=== PATIENT | female | born 1985 | race Caucasian/White ===

== ENCOUNTER 2016-10-01 22:24 | Emergency (ER) | payer OTHER ==
[2016-10-01 22:30] VITALS: BP 111/75; PULSE 94; RESP 18; TEMP 98.9
--- NOTE | 2016-10-01 23:44 | ED ---
URI HPI - General Chief Complaint: Upper Respiratory Infection Stated Complaint: Diff breathing Time Seen by Provider: 10/01/16 23:14 Source: patient, RN notes reviewed Mode of arrival: ambulatory Limitations: no limitations - History of Present Illness Initial Comments: Patient is a 31-year-old female presents to the emergency room for evaluation of general malaise. Patient states that starting yesterday she began having all over body aches, headache, congestion, sore throat, cough. Patient states she is coughing so much she feels short of breath. Patient denies chest pain. Patient states and taking vitamin C. Patient denies taking any other medications for her symptoms. Patient denies receiving her influenza vaccine this year. Patient denies any nausea or vomiting, patient denies abdominal pain. Patient denies diarrhea. Patient states she's been having low-grade fever over the past day. Patient denies being on any medications. Patient denies any significant past medical history. Patient does admit that she smokes a half pack of cigarettes per day. - Related Data Home Medications Medication Instructions Recorded Confirmed #79/Iron Asp Gly/FA#1 1 each PO DAILY 10/01/16 10/01/16 [Prenate Elite Tablet] Previous Rx's Medication Instructions Recorded guaiFENesin [Mucinex] 1,200 mg PO BID PRN #12 tab.er.12h 10/02/16 Allergies Allergy/AdvReac Type Severity Reaction Status Date / Time No Known Allergies Allergy Verified 10/01/16 22:29 Review of Systems ROS Statement: Those systems with pertinent positive or pertinent negative responses have been documented in the HPI. ROS Other: All systems not noted in ROS Statement are negative. Past Medical History Past Medical History: No Reported History History of Any Multi-Drug Resistant Organisms: None Reported Past Surgical History: Hernia Repair Past Psychological History: No Psychological Hx Reported Smoking Status: Current every day smoker Past Alcohol Use History: None Reported Past Drug Use History: None Reported General Exam - General Exam Comments Initial Comments: Sitting in exam room, no acute distress. Limitations: no limitations General appearance: alert, in no apparent distress Head exam: Present: atraumatic, normocephalic, normal inspection Eye exam: Present: normal appearance ENT exam: Present: normal exam, normal oropharynx, mucous membranes moist, TM's normal bilaterally, normal external ear exam Neck exam: Present: normal inspection, full ROM Respiratory exam: Present: normal lung sounds bilaterally. Absent: respiratory distress Cardiovascular Exam: Present: regular rate, normal rhythm, normal heart sounds Extremities exam: Present: normal inspection Back exam: Present: normal inspection Neurological exam: Present: alert, oriented X3, CN II-XII intact, normal gait Psychiatric exam: Present: normal affect, normal mood Skin exam: Present: warm, dry, intact, normal color. Absent: rash Course Vital Signs 10/01/16 10/01/16 22:27 23:45 Temperature 98.9 F Pulse Rate 94 Respiratory 18 18 Rate Blood Pressure 111/75 O2 Sat by Pulse 100 Oximetry Medical Decision Making - Medical Decision Making Patient is a 31-year-old female since emergency room for evaluation of general malaise. Influenza negative. Chest x-ray shows no acute findings. Patient's symptoms was likely viral. Advised patient to continue on Tylenol and Motrin for fever/body aches. Will place patient on Mucinex for sinus congestion. Advised patient to follow-up with primary care provider in 1-2 days. Patient states she understands everything that was discussed with her. Return parameters discussed. Case discussed with Dr. Gibbs. - Lab Data Lab Results 10/01/16 Range/Units 23:50 Influenza Type A RNA Not Detected (Not Detectd) Influenza Type B (PCR) Not Detected (Not Detectd) - Radiology Data Radiology results: report reviewed, image reviewed Disposition Clinical Impression: Upper respiratory infection Disposition: HOME SELF-CARE Condition: Good Instructions: Upper Respiratory Infection (ED) Additional Instructions: Take medications as directed. Take Tylenol or Motrin as needed for fever/ discomfort. Drink plenty of fluids. Please follow up with primary care provider in 1-2 days for reevaluation. If any new symptom arises or symptoms worsen, return to ER as soon as possible. Prescriptions: guaiFENesin [Mucinex] 1,200 mg PO BID PRN #12 tab.er.12h PRN Reason: Congestion Referrals: None,Stated [Primary Care Provider] - 1-2 days Time of Disposition: 00:51
--- NOTE | 2016-10-02 00:36 | XR ---
EXAMINATION TYPE: XR chest 2V DATE OF EXAM: 10/01/2016 11:50 PM COMPARISON: 09/21/2015 HISTORY: History of cough and congestion and shortness of breath since yesterday TECHNIQUE: Frontal and lateral views of the chest are obtained. FINDINGS: Mild peribronchial cuffing is noted with possible chronic bronchitis changes. There is no focal air space opacity, pleural effusion, or pneumothorax seen. The cardiac silhouette size is within normal limits. The osseous structures are intact. IMPRESSION: 1. Possible chronic bronchitis. 2. No focal pneumonia. 3. No significant change.
== END 2016-10-02 01:06 | disposition home or self-care (01) ==
LOC: EC 22:24
DX: J06.9 Acute upper respiratory infection, unspecified (principal); F17.210 Nicotine dependence, cigarettes, uncomplicated
CPT/HCPCS: 71020; 87502; 99284

== ENCOUNTER 2017-06-27 17:35 | Emergency (ER) | payer OTHER ==
[2017-06-27 17:55] VITALS: TEMP 97.9
--- NOTE | 2017-06-27 18:26 | ED ---
General Adult HPI - General Chief complaint: Extremity Injury, Upper Stated complaint: R arm injury Time Seen by Provider: 06/27/17 17:56 Source: patient, RN notes reviewed Mode of arrival: ambulatory Limitations: no limitations - History of Present Illness Initial comments: Patient 32-year-old female who presents emergency room today with a chief complaint of an injury to the right arm that occurred approximately 2 hours ago. She does admit that she was running after her sister when she closed the door suddenly and she hit the door causing this injury. She does admit to pain locally to the right elbow down to the right hand. She states that she has limited range of motion at the elbow, wrist, hand due to the pain. She states she does feel some numbness tingling in this areas. She denies any other injuries or complaints. Patient denies any recent fever, chills, shortness of breath, chest pain, back pain, abdominal pain, nausea or vomiting, dysuria or hematuria, constipation or diarrhea, headaches or visual changes, or any other complaints. - Related Data Home Medications Medication Instructions Recorded Confirmed No Known Home Medications [No 06/27/17 06/27/17 Known Home Medications] Allergies Allergy/AdvReac Type Severity Reaction Status Date / Time No Known Allergies Allergy Verified 06/27/17 18:20 Review of Systems ROS Statement: Those systems with pertinent positive or pertinent negative responses have been documented in the HPI. ROS Other: All systems not noted in ROS Statement are negative. Past Medical History Past Medical History: No Reported History History of Any Multi-Drug Resistant Organisms: None Reported Past Surgical History: Hernia Repair Past Psychological History: No Psychological Hx Reported Smoking Status: Current every day smoker Past Alcohol Use History: None Reported, Rare Past Drug Use History: None Reported General Exam - General Exam Comments Initial Comments: General: The patient is awake and alert, in no distress, and does not appear acutely ill. Neck: The neck is supple, there is no tenderness or JVD. Cardiovascular: There is a regular rate and rhythm. No murmur, rub or gallop is appreciated. Respiratory: Lungs are clear to auscultation, respirations are non-labored, breath sounds are equal. No wheezes, stridor, rales, or rhonchi. Musculoskeletal: patient has normal appearance of the right shoulder, elbow, hand and wrist with no signs of swelling bruising at this time. She shows limited range of motion at the right elbow, wrist and hand due to pain. She is locally tender distal humerus down into the right elbow diffusely. Does have diffuse tenderness down to the right forearm and right wrist. Her sensations are intact. Pulses are equal bilaterally 2+. Neurological: A&O x 3. CN II-XII intact, There are no obvious motor or sensory deficits. Coordination appears grossly intact. Speech is normal. Skin: Skin is warm and dry and no rashes or lesions are noted. Psychiatric: Normal mood and affect. Limitations: no limitations Course Vital Signs 06/27/17 17:52 Temperature 97.9 F Pulse Rate 84 Respiratory 20 Rate Blood Pressure 108/67 O2 Sat by Pulse 100 Oximetry Medical Decision Making - Medical Decision Making Patient reexamined at this time shows no signs of distress. She does admit that she is feeling better after x-rays. She states seemed to feel better after the move her arm. Patient is showing good range of motion with all digits with being able to flex extend and also been able flex and extend at the wrist. Still experiencing some pain at the right elbow locally. She does admit still experiencing some numbness and tingling sensation down into the fingertips. Sensations are intact to light touch. Patient's x-rays reviewed and are negative for any acute fracture or dislocation. Pain medication was offered. Patient here in the emergency room which has declined. She states she will take ibuprofen she gets home. Was discussed with patient about possible dislocation that was reduced during x-ray. Patient again has no abnormal appearance of the right elbow. Neurovascularly intact at this time. Case discussed with attending physician Dr. Vazquez. Patient will be given arm sling for comfort and advised follow-up with orthopedics tomorrow. Signs and symptoms of concern were discussed with the patient and reason for return. She states understanding and is in agreement. Disposition Clinical Impression: Injury of right elbow Disposition: HOME SELF-CARE Condition: Good Instructions: Elbow Sprain (ED) Additional Instructions: Please follow-up with orthopedics over the next 2 days. Please use arm sling for comfort when up and moving around but cannot sleep with it on. Please continue to ice elevate the affected area and use ibuprofen for pain. Please return to emergency room if any symptoms increase worsen or for any other concerns. Referrals: None,Stated [Primary Care Provider] - 1-2 days Yan Martinez MD [STAFF PHYSICIAN] - 1-2 days Time of Disposition: 18:58
--- NOTE | 2017-06-27 18:40 | XR ---
PROCEDURE: XR forearm RT DATE AND TIME: 06/27/2017 6:22 PM REFERRING PHYSICIAN: Jericho Lobo CLINICAL INDICATION: [facility], Pain TECHNIQUE: Department protocol. COMPARISON: None FINDINGS: There is no fracture or malalignment. The soft tissues are unremarkable. IMPRESSION: NO ACUTE PROCESS.
--- NOTE | 2017-06-27 18:41 | XR ---
PROCEDURE: XR elbow complete RT - 3V DATE AND TIME: 06/27/2017 6:22 PM REFERRING PHYSICIAN: Jericho Lobo CLINICAL INDICATION: [facility], Pain TECHNIQUE: Department protocol. 3 views. COMPARISON: None FINDINGS: There is no fracture or malalignment. The soft tissues are unremarkable. IMPRESSION: NO ACUTE PROCESS.
[2017-06-27 19:08] VITALS: BP 100/59; PULSE 73; RESP 16
== END 2017-06-27 19:16 | disposition home or self-care (01) ==
LOC: EC 17:35
DX: S59.901A Unspecified injury of right elbow, initial encounter (principal); F17.200 Nicotine dependence, unspecified, uncomplicated; W22.8XXA Striking against or struck by other objects, initial encounter; Y93.02 Activity, running
CPT/HCPCS: 99283

== ENCOUNTER 2018-05-09 20:27 | Emergency (ER) | payer OTHER ==
[2018-05-09 20:35] VITALS: RESP 18
[2018-05-09 20:52] LABS: Appearance,Urine Clear (Clear); Bacteria,Urine Rare /hpf; Bilirubin,Urine Negative (Negative); Blood,Urine Large (Negative); Color,Urine Yellow; Glucose,Urine (UA) Negative (Negative); Ketones,Urine Negative (Negative); Leukocyte Esterase,Urine Small (Negative); Mucus,Urine Rare /hpf; Nitrite,Urine Negative (Negative); PH, Urine 6.5 (5.0-8.0); Protein,Urine Negative (Negative); RBC,Urine 31 /hpf (0-5); Specific Gravity,Urine 1.015 (1.001-1.035); Squamous Epithelial Cell,Urine 2 /hpf (0-4); Urobilinogen,Urine <2.0 mg/dL (<2.0); WBC,Urine 6 /hpf (0-5)
[2018-05-09] MEDS ORDERED: SODIUM CHLORIDE 0.9% 1,000 ML IV STA (21:09)
[2018-05-09] MEDS ORDERED: KETOROLAC 30 MG/ML 1 ML VIAL IVP STA (21:09)
--- NOTE | 2018-05-09 21:35 | ED ---
General Adult HPI - General Chief complaint: Urogenital Stated complaint: lower back pain/fever Time Seen by Provider: 05/09/18 21:03 Source: patient, RN notes reviewed, old records reviewed Mode of arrival: ambulatory Limitations: no limitations - History of Present Illness Initial comments: 33-year-old female presenting for evaluation of dysuria and bilateral low back pain. This is a reevaluation, patient was seen at an outside hospital, according to the patient no specific diagnosis was made. She was discharged with Motrin. Symptoms have failed to improve throughout the day. Patient has had fever and chills at home. She does report some nausea, no significant vomiting. No history of kidney stone. No significant chronic medical problems. Denies vaginal bleeding. Denies significant vaginal discharge although she states there is a foul smell. No abdominal pain. No chest pain or shortness of breath. - Related Data Home Medications Medication Instructions Recorded Confirmed Ibuprofen [Motrin] 600 mg PO Q8H PRN 05/09/18 05/09/18 Vitamin B12 5000mcg Drop 1 drop PO DAILY 05/09/18 05/09/18 Previous Rx's Medication Instructions Recorded Ibuprofen [Motrin] 600 mg PO Q8HR PRN #24 tab 05/10/18 Sulfamethox-Tmp 800-160Mg [Bactrim 1 tab PO Q12HR #28 tab 05/10/18 DS 800-160 mg] Allergies Allergy/AdvReac Type Severity Reaction Status Date / Time No Known Allergies Allergy Verified 05/09/18 21:12 Review of Systems ROS Statement: Those systems with pertinent positive or pertinent negative responses have been documented in the HPI. ROS Other: All systems not noted in ROS Statement are negative. Past Medical History Past Medical History: No Reported History History of Any Multi-Drug Resistant Organisms: None Reported Past Surgical History: Hernia Repair Past Psychological History: Depression Smoking Status: Current every day smoker Past Alcohol Use History: Occasional Past Drug Use History: None Reported General Exam Limitations: no limitations General appearance: alert, in no apparent distress Head exam: Present: atraumatic, normocephalic Eye exam: Present: normal appearance, PERRL ENT exam: Present: normal exam Neck exam: Present: normal inspection. Absent: tenderness, meningismus Respiratory exam: Present: normal lung sounds bilaterally. Absent: respiratory distress, wheezes Cardiovascular Exam: Present: regular rate, normal rhythm GI/Abdominal exam: Present: soft. Absent: distended, tenderness Speculum exam: Present: normal speculum exam. Absent: vaginal bleeding By manual exam: Present: adnexal tenderness (left). Absent: cervical motion tenderness Extremities exam: Present: normal inspection, normal capillary refill. Absent: pedal edema Back exam: Present: normal inspection, tenderness, CVA tenderness (R), CVA tenderness (L) Neurological exam: Present: alert, oriented X3, CN II-XII intact. Absent: motor sensory deficit Psychiatric exam: Present: normal affect, normal mood Skin exam: Present: warm, dry, intact. Absent: cyanosis, diaphoretic Course Vital Signs 05/09/18 05/09/18 05/10/18 20:32 23:40 01:37 Temperature 100 F H 98.4 F Pulse Rate 72 88 Respiratory 18 18 18 Rate Blood Pressure 110/72 110/57 O2 Sat by Pulse 100 99 Oximetry Medical Decision Making - Medical Decision Making 33-year-old female presenting with abdominal pain and bilateral flank pain. Patient was seen at an outside hospital, prescribed Motrin, this failed to improve her symptoms. She will be presents today for evaluation. She does have some left lower quadrant tenderness as well as some CVA tenderness. CT is obtained, negative for renal calculus, there is a 4.5 cm adnexal mass, this is evaluated by ultrasound andshow likely hemorrhagic left ovarian cyst. She has mild leukocytosis. She has some hematuria with rare bacteria. Urine culture is pending. Case is discussed with Dr. Wheeler, it is felt this does represent hemorrhagic cyst, no concern for TOA with this presentation. Patient will be started empirically on antibiotics awaiting urine culture results. She will continue Motrin for pain. Follow-up with [facility] as an outpatient. - Lab Data Result diagrams: 05/09/18 21:34 05/09/18 21:34 Lab Results 05/09/18 05/09/18 05/09/18 Range/Units 20:40 20:40 21:34 WBC (3.8-10.6) k/uL RBC (3.80-5.40) m/uL Hgb (11.4-16.0) gm/dL Hct (34.0-46.0) % MCV (80.0-100.0) fL MCH (25.0-35.0) pg MCHC (31.0-37.0) g/dL RDW (11.5-15.5) % Plt Count (150-450) k/uL Neutrophils % % Lymphocytes % % Monocytes % % Eosinophils % % Basophils % % Neutrophils # (1.3-7.7) k/uL Lymphocytes # (1.0-4.8) k/uL Monocytes # (0-1.0) k/uL Eosinophils # (0-0.7) k/uL Basophils # (0-0.2) k/uL Sodium 138 (137-145) mmol/L Potassium 3.8 (3.5-5.1) mmol/L Chloride 111 H (98-107) mmol/L Carbon Dioxide 19 L (22-30) mmol/L Anion Gap 8 mmol/L BUN 16 (7-17) mg/dL Creatinine 0.80 (0.52-1.04) mg/dL Est GFR (CKD-EPI)AfAm >90 (>60 ml/min/1.73 sqM) Est GFR (CKD-EPI)NonAf >90 (>60 ml/min/1.73 sqM) Glucose 96 (74-99) mg/dL Plasma Lactic Acid Hieu (0.7-2.0) mmol/L Calcium 8.5 (8.4-10.2) mg/dL Total Bilirubin 0.3 (0.2-1.3) mg/dL AST 13 L (14-36) U/L ALT 25 (9-52) U/L Alkaline Phosphatase 47 (38-126) U/L Total Protein 5.8 L (6.3-8.2) g/dL Albumin 3.3 L (3.5-5.0) g/dL Amylase 93 (30-110) U/L Lipase 227 (23-300) U/L Urine Color Yellow Urine Appearance Clear (Clear) Urine pH 6.5 (5.0-8.0) Ur Specific Rubicon 1.015 (1.001-1.035) Urine Protein Negative (Negative) Urine Glucose (UA) Negative (Negative) Urine Ketones Negative (Negative) Urine Blood Large H (Negative) Urine Nitrite Negative (Negative) Urine Bilirubin Negative (Negative) Urine Urobilinogen <2.0 (<2.0) mg/dL Ur Leukocyte Esterase Small H (Negative) Urine RBC 31 H (0-5) /hpf Urine WBC 6 H (0-5) /hpf Ur Squamous Epith Cells 2 (0-4) /hpf Urine Bacteria Rare H (None) /hpf Urine Mucus Rare H (None) /hpf Urine HCG, Qual Not Detected (Not Detectd) 05/09/18 05/09/18 Range/Units 21:34 21:34 WBC 12.7 H (3.8-10.6) k/uL RBC 3.99 (3.80-5.40) m/uL Hgb 12.2 (11.4-16.0) gm/dL Hct 38.0 (34.0-46.0) % MCV 95.1 (80.0-100.0) fL MCH 30.5 (25.0-35.0) pg MCHC 32.0 (31.0-37.0) g/dL RDW 13.2 (11.5-15.5) % Plt Count 189 (150-450) k/uL Neutrophils % 81 % Lymphocytes % 13 % Monocytes % 3 % Eosinophils % 2 % Basophils % 0 % Neutrophils # 10.3 H (1.3-7.7) k/uL Lymphocytes # 1.6 (1.0-4.8) k/uL Monocytes # 0.4 (0-1.0) k/uL Eosinophils # 0.2 (0-0.7) k/uL Basophils # 0.0 (0-0.2) k/uL Sodium (137-145) mmol/L Potassium (3.5-5.1) mmol/L Chloride (98-107) mmol/L Carbon Dioxide (22-30) mmol/L Anion Gap mmol/L BUN (7-17) mg/dL Creatinine (0.52-1.04) mg/dL Est GFR (CKD-EPI)AfAm (>60 ml/min/1.73 sqM) Est GFR (CKD-EPI)NonAf (>60 ml/min/1.73 sqM) Glucose (74-99) mg/dL Plasma Lactic Acid Hieu 0.7 (0.7-2.0) mmol/L Calcium (8.4-10.2) mg/dL Total Bilirubin (0.2-1.3) mg/dL AST (14-36) U/L ALT (9-52) U/L Alkaline Phosphatase (38-126) U/L Total Protein (6.3-8.2) g/dL Albumin (3.5-5.0) g/dL Amylase (30-110) U/L Lipase (23-300) U/L Urine Color Urine Appearance (Clear) Urine pH (5.0-8.0) Ur Specific Rubicon (1.001-1.035) Urine Protein (Negative) Urine Glucose (UA) (Negative) Urine Ketones (Negative) Urine Blood (Negative) Urine Nitrite (Negative) Urine Bilirubin (Negative) Urine Urobilinogen (<2.0) mg/dL Ur Leukocyte Esterase (Negative) Urine RBC (0-5) /hpf Urine WBC (0-5) /hpf Ur Squamous Epith Cells (0-4) /hpf Urine Bacteria (None) /hpf Urine Mucus (None) /hpf Urine HCG, Qual (Not Detectd) Disposition Clinical Impression: Urinary tract infection, Hemorrhagic ovarian cyst Disposition: HOME SELF-CARE Condition: Stable Prescriptions: Ibuprofen [Motrin] 600 mg PO Q8HR PRN #24 tab PRN Reason: Pain Sulfamethox-Tmp 800-160Mg [Bactrim DS 800-160 mg] 1 tab PO Q12HR #28 tab Is patient prescribed a controlled substance at d/c from ED?: No Referrals: None,Stated [Primary Care Provider] - 1-2 days Parminder Wheeler DO [Doctor of Osteopathic Medicine] - 1-2 days Time of Disposition: 01:30
[2018-05-09 21:56] LABS: Basophils % (A) 0 %; Eosinophils # (A) 0.2 k/uL (0-0.7); Eosinophils % (A) 2 %; HGB 12.2 gm/dL (11.4-16.0); Lymphocytes # (A) 1.6 k/uL (1.0-4.8); Lymphocytes % (A) 13 %; MCH 30.5 pg (25.0-35.0); MCV 95.1 fL (80.0-100.0); Mean Platelet Volume 6.8; Monocytes # (A) 0.4 k/uL (0-1.0); Monocytes % (A) 3 %; Neutrophils # (A) 10.3 k/uL (1.3-7.7); Neutrophils % (A) 81 %; Platelet Count 189 k/uL (150-450); RBC 3.99 m/uL (3.80-5.40); RDW 13.2 % (11.5-15.5); WBC 12.7 k/uL (3.8-10.6)
[2018-05-09 22:04] LABS: ALT 25 U/L (9-52); AST 13 U/L (14-36); Albumin 3.3 g/dL (3.5-5.0); Alkaline Phosphatase 47 U/L (38-126); Amylase 93 U/L (30-110); Anion Gap 8 mmol/L; Blood Urea Nitrogen 16 mg/dL (7-17); Calcium 8.5 mg/dL (8.4-10.2); Carbon Dioxide 19 mmol/L (22-30); Chloride 111 mmol/L (98-107); Glucose 96 mg/dL (74-99); Lipase 227 U/L (23-300); Potassium 3.8 mmol/L (3.5-5.1); Sodium 138 mmol/L (137-145); Total Bilirubin 0.3 mg/dL (0.2-1.3); Total Protein 5.8 g/dL (6.3-8.2)
--- NOTE | 2018-05-09 22:47 | XR ---
EXAM: XR Abdomen, 3 or More Views CLINICAL HISTORY: ITS.REASON XR Reason: abdominal pain TECHNIQUE: Frontal view of the abdomen/pelvis with upright view of the abdomen and one or more additional views. COMPARISON: No relevant prior studies available. FINDINGS: Intraperitoneal space: No free air. Gastrointestinal tract: Fecal retention should be correlated for constipation. Bones/joints: Unremarkable. IMPRESSION: Fecal retention should be correlated for constipation.
[2018-05-10] MEDS ORDERED: cefTRIAXone IN SWFI 1,000 MG/10 ML SYRINGE IVP STA (00:07)
--- NOTE | 2018-05-10 00:13 | CT ---
EXAM: CT Abdomen and Pelvis Without Intravenous Contrast CLINICAL HISTORY: ITS.REASON CT Reason: Pain TECHNIQUE: Axial computed tomography images of the abdomen and pelvis without intravenous contrast. This CT exam was performed using one or more of the following dose reduction techniques: automated exposure control, adjustment of the mA and/or kV according to patient size, and/or use of iterative reconstruction technique. CT DI 13.72 DLP 739 COMPARISON: No relevant prior studies available. FINDINGS: Lung bases: Mild subsegmental basilar atelectasis. Calcified right base granuloma.. ABDOMEN: Liver: Unremarkable. Gallbladder and bile ducts: Unremarkable. No calcified stones. No ductal dilation. Pancreas: Unremarkable. No ductal dilation. Spleen: Unremarkable. No splenomegaly. Adrenals: Unremarkable. No mass. Kidneys and ureters: Unremarkable. No obstructing stones. No hydronephrosis. Stomach and bowel: Fecal retention should be correlated for constipation. PELVIS: Appendix: Unremarkable appendix. Bladder: Unremarkable. No stones. Reproductive: 4.5 cm cystic left adnexal mass, likely ovarian in origin. This could be further assessed sonographically.. ABDOMEN and PELVIS: Intraperitoneal space: Unremarkable. No free air. No significant fluid collection. Bones/joints: No acute fracture. No dislocation. Soft tissues: Unremarkable. Vasculature: Unremarkable. No abdominal aortic aneurysm. Lymph nodes: Unremarkable. No enlarged lymph nodes. IMPRESSION: 4.5 cm cystic left adnexal mass could be further assessed sonographically. Fecal retention should be correlated for constipation. Other incidental findings as detailed above.
--- NOTE | 2018-05-10 01:15 | US ---
EXAM: US Pelvis Complete, Transabdominal US Pelvis, Transvaginal CLINICAL HISTORY: ITS.REASON US Reason: Pain TECHNIQUE: Real-time transabdominal and transvaginal pelvic ultrasound (complete) with image documentation. Transvaginal imaging was used for better evaluation of the endometrium and adnexa. COMPARISON: No relevant prior studies available. FINDINGS: Uterus/cervix: Normal in size, 6.6 x 6.4 x 5.2 cm. Normal endometrial stripe thickness at 6 mm. 1.2 cm hypoechoic lesion in the leftward uterine corpus is likely a small fibroid. Right ovary: Not identified. Left ovary: Enlarged, measuring 5.2 x 3.8 x 4 cm. This is due to a 4. 4 cm complex left ovarian cyst, likely containing hemorrhagic debris. No sonographic findings of torsion. Recommend six-week follow-up to document resolution. IMPRESSION: 4.4 cm complex cyst expands the left ovary. No sonographic findings of torsion. Recommend six-week follow-up to document resolution. 1.2 cm presumed fibroid to the leftward uterine corpus.
[2018-05-10 01:38] VITALS: BP 110/57; PULSE 88; TEMP 98.4
--- NOTE | 2018-05-10 02:05 | ED ---
Medical Decision Making - Lab Data Result diagrams: 05/09/18 21:34 05/09/18 21:34 Lab Results 05/09/18 05/09/18 05/09/18 Range/Units 20:40 20:40 21:34 WBC (3.8-10.6) k/uL RBC (3.80-5.40) m/uL Hgb (11.4-16.0) gm/dL Hct (34.0-46.0) % MCV (80.0-100.0) fL MCH (25.0-35.0) pg MCHC (31.0-37.0) g/dL RDW (11.5-15.5) % Plt Count (150-450) k/uL Neutrophils % % Lymphocytes % % Monocytes % % Eosinophils % % Basophils % % Neutrophils # (1.3-7.7) k/uL Lymphocytes # (1.0-4.8) k/uL Monocytes # (0-1.0) k/uL Eosinophils # (0-0.7) k/uL Basophils # (0-0.2) k/uL Sodium 138 (137-145) mmol/L Potassium 3.8 (3.5-5.1) mmol/L Chloride 111 H (98-107) mmol/L Carbon Dioxide 19 L (22-30) mmol/L Anion Gap 8 mmol/L BUN 16 (7-17) mg/dL Creatinine 0.80 (0.52-1.04) mg/dL Est GFR (CKD-EPI)AfAm >90 (>60 ml/min/1.73 sqM) Est GFR (CKD-EPI)NonAf >90 (>60 ml/min/1.73 sqM) Glucose 96 (74-99) mg/dL Plasma Lactic Acid Hieu (0.7-2.0) mmol/L Calcium 8.5 (8.4-10.2) mg/dL Total Bilirubin 0.3 (0.2-1.3) mg/dL AST 13 L (14-36) U/L ALT 25 (9-52) U/L Alkaline Phosphatase 47 (38-126) U/L Total Protein 5.8 L (6.3-8.2) g/dL Albumin 3.3 L (3.5-5.0) g/dL Amylase 93 (30-110) U/L Lipase 227 (23-300) U/L Urine Color Yellow Urine Appearance Clear (Clear) Urine pH 6.5 (5.0-8.0) Ur Specific [place] 1.015 (1.001-1.035) Urine Protein Negative (Negative) Urine Glucose (UA) Negative (Negative) Urine Ketones Negative (Negative) Urine Blood Large H (Negative) Urine Nitrite Negative (Negative) Urine Bilirubin Negative (Negative) Urine Urobilinogen <2.0 (<2.0) mg/dL Ur Leukocyte Esterase Small H (Negative) Urine RBC 31 H (0-5) /hpf Urine WBC 6 H (0-5) /hpf Ur Squamous Epith Cells 2 (0-4) /hpf Urine Bacteria Rare H (None) /hpf Urine Mucus Rare H (None) /hpf Urine HCG, Qual Not Detected (Not Detectd) 05/09/18 05/09/18 Range/Units 21:34 21:34 WBC 12.7 H (3.8-10.6) k/uL RBC 3.99 (3.80-5.40) m/uL Hgb 12.2 (11.4-16.0) gm/dL Hct 38.0 (34.0-46.0) % MCV 95.1 (80.0-100.0) fL MCH 30.5 (25.0-35.0) pg MCHC 32.0 (31.0-37.0) g/dL RDW 13.2 (11.5-15.5) % Plt Count 189 (150-450) k/uL Neutrophils % 81 % Lymphocytes % 13 % Monocytes % 3 % Eosinophils % 2 % Basophils % 0 % Neutrophils # 10.3 H (1.3-7.7) k/uL Lymphocytes # 1.6 (1.0-4.8) k/uL Monocytes # 0.4 (0-1.0) k/uL Eosinophils # 0.2 (0-0.7) k/uL Basophils # 0.0 (0-0.2) k/uL Sodium (137-145) mmol/L Potassium (3.5-5.1) mmol/L Chloride (98-107) mmol/L Carbon Dioxide (22-30) mmol/L Anion Gap mmol/L BUN (7-17) mg/dL Creatinine (0.52-1.04) mg/dL Est GFR (CKD-EPI)AfAm (>60 ml/min/1.73 sqM) Est GFR (CKD-EPI)NonAf (>60 ml/min/1.73 sqM) Glucose (74-99) mg/dL Plasma Lactic Acid Hieu 0.7 (0.7-2.0) mmol/L Calcium (8.4-10.2) mg/dL Total Bilirubin (0.2-1.3) mg/dL AST (14-36) U/L ALT (9-52) U/L Alkaline Phosphatase (38-126) U/L Total Protein (6.3-8.2) g/dL Albumin (3.5-5.0) g/dL Amylase (30-110) U/L Lipase (23-300) U/L Urine Color Urine Appearance (Clear) Urine pH (5.0-8.0) Ur Specific [place] (1.001-1.035) Urine Protein (Negative) Urine Glucose (UA) (Negative) Urine Ketones (Negative) Urine Blood (Negative) Urine Nitrite (Negative) Urine Bilirubin (Negative) Urine Urobilinogen (<2.0) mg/dL Ur Leukocyte Esterase (Negative) Urine RBC (0-5) /hpf Urine WBC (0-5) /hpf Ur Squamous Epith Cells (0-4) /hpf Urine Bacteria (None) /hpf Urine Mucus (None) /hpf Urine HCG, Qual (Not Detectd) Disposition Clinical Impression: Urinary tract infection, Hemorrhagic ovarian cyst Disposition: HOME SELF-CARE Condition: Stable Instructions: Urinary Tract Infection in Women (ED), Ovarian Cyst (ED) Prescriptions: Ibuprofen [Motrin] 600 mg PO Q8HR PRN #24 tab PRN Reason: Pain Sulfamethox-Tmp 800-160Mg [Bactrim DS 800-160 mg] 1 tab PO Q12HR #28 tab Is patient prescribed a controlled substance at d/c from ED?: No Referrals: Parminder Wheeler DO [Doctor of Osteopathic Medicine] - 1-2 days None,Stated [Primary Care Provider] - 1-2 days Time of Disposition: 02:05
== END 2018-05-10 02:11 | disposition home or self-care (01) ==
LOC: EC 20:27
DX: N39.0 Urinary tract infection, site not specified (principal); N83.202 Unspecified ovarian cyst, left side; D72.829 Elevated white blood cell count, unspecified; R11.0 Nausea; F17.200 Nicotine dependence, unspecified, uncomplicated; Z79.899 Other long term (current) drug therapy
CPT/HCPCS: 36415; 80053; 82150; 83605; 83690; 85025; 81001; 81025; 74018; 74176; 99284; 96374; 96375; 96361 ×2; J1885; 76830; 87040; 87086; 93976